=== PATIENT | male | born 1980 | race Caucasian/White ===

== ENCOUNTER → 2016-10-17 | Outpatient (CLI) | payer OTHER ==
[~2016-10-17] MED LIST: ONDA8TAB6 PO; OPTIRAY 320 IV PRN
--- NOTE | 2016-10-17 09:19 | DIAGNOSTIC IMAGING REPORT ---
CHEST CT WITH CONTRAST CT DOSE: 1184.63 mGy.cm HISTORY: HX OF SEMINOMA, LAST CT SHOWED NODULE TECHNIQUE: Multiaxial CT images of the chest were performed following the intravenous administration of contrast. A dose lowering technique was utilized adhering to the principles of ALARA. COMPARISON: Chest CT 01/06/2016. FINDINGS: The central airways are patent. No pleural effusions. No pneumothorax. Stable 3 mm subpleural nodule within the right middle lobe abutting the minor fissure on image 119. No new or suspicious pulmonary nodules identified. The left lung is clear. No suspicious lytic or blastic osseous lesions. No mediastinal or hilar lymphadenopathy. The central pulmonary arteries are patent. Normal caliber thoracic aorta. Hepatic steatosis. Normal spleen and adrenal glands. IMPRESSION: No definite evidence for metastatic disease within the chest. Stable low suspicion 3 mm subpleural nodule within the right middle lobe. This bears watching on future examinations. Electronically signed by: Wilber Schuler M.D. 10/17/2016 9:18 AM Dictated Date/Time: 10/17/2016 9:14 AM
== END | disposition home or self-care (01) ==
LOC: C.CTS 08:47
PROVIDERS: ATTEND Internal Medicine Hematology & Oncology
DX: C62.12 Malignant neoplasm of descended left testis (principal)